=== PATIENT | female | born 2005 | race Caucasian/White ===

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

== ENCOUNTER 2023-07-07 09:40 | Inpatient (IN) | payer BC ==
[2023-07-07] MEDS ORDERED: Water For Irrigation,Sterile 1,000 ML Container IRR PRN (10:48)
[2023-07-07] MEDS ORDERED: Ondansetron 4 MG/2 ML SDV IVPUSH PRN (10:48)
[2023-07-07] MEDS ORDERED: Lidocaine 1% 50 ML MDV INJECT PRN (10:48)
[2023-07-07] MEDS ORDERED: Sodium Chloride 0.9% 20 ML SDV IV PRN (10:48)
[2023-07-07] MEDS ORDERED: Carboprost Tromethamine 250 MCG/1 mL Vial IM PRN (10:48)
[2023-07-07] MEDS ORDERED: Tranexamic Acid IN NACL,ISO-OS 1,000 MG in Premix Bag 1 BAG IV PRN ×2 (10:48→22:41)
[2023-07-07] MEDS ORDERED: Methylergonovine 0.2 MG/1 ML Amp IM PRN ×2 (10:48→22:41)
[2023-07-07] MEDS ORDERED: Sodium Chloride 0.9% 2.5 ML Syringe FLUSH PRN (10:48)
[2023-07-07] MEDS ORDERED: Misoprostol 200 MCG Tab PO PRN (10:48)
[2023-07-07] MEDS ORDERED: Sodium Chloride 0.9% 10 ML Syringe FLUSH PRN (10:48)
[2023-07-07] MEDS ORDERED: Oxytocin/0.9 % Sodium Chloride 30 UNIT/500 ML BAG IV SCH (11:00)
[2023-07-07 11:51] LABS: HEMATOCRIT 37.9 % (37.0-47.0); HEMOGLOBIN 13.5 g/dL (12.0-16.0); MEAN CORPUSCULAR HEMOGLOBIN 31.3 pg (28.0-32.0); MEAN CORPUSCULAR HGB CONC 35.6 g/dL (32.0-36.0); MEAN CORPUSCULAR VOLUME 87.9 fL (83.0-99.0); MEAN PLATELET VOLUME 12.4 fL (9.4-12.3); PLATELET COUNT,PLT 200 K/uL (150-400); RED BLOOD CELL COUNT 4.31 M/uL (4.10-5.30); WHITE BLOOD CELL COUNT,WBC 13.14 K/uL (3.9-11.3)
[2023-07-07] MEDS: Lactated Ringers 1,000 ML IV SCH (12:45)
[2023-07-07] MEDS ORDERED: Bupivacaine 0.5% 10 ML SDV ONE (14:29)
[2023-07-07] MEDS ORDERED: Phenylephrine HCl 0.5 MG/5 ML AMP ONE (14:29)
[2023-07-07] MEDS: Ropivacaine HCl/PF 200 ML ONE (14:44)
[2023-07-07] MEDS ORDERED: ePHEDrine 50 MG/ML SDV IVPUSH PRN ×2 (14:51)
[2023-07-07] MEDS ORDERED: Phenylephrine HCl 0.5 MG/5 ML AMP IVPUSH PRN (14:51)
[2023-07-07] MEDS ORDERED: Ropivacaine HCl/PF 400 MG in Premix Bag 1 BAG EPIDUR SCH (15:00)
[2023-07-07] MEDS ORDERED: Terbutaline 1 MG/ML SDV SUBCUT PRN (15:02)
[2023-07-07] MEDS: Oxytocin/0.9 % Sodium Chloride 30 UNIT/500 ML BAG IV SCH (15:34)
[2023-07-07] MEDS ORDERED: Lanolin 100% Cream 7 GM Tube TOP PRN (22:41)
[2023-07-07 22:51] LABS: PH,UMBILICAL ARTERIAL 7.16 (7.18-7.38); PH,UMBILICAL VENOUS 7.315 (7.25-7.45)
[2023-07-08] MEDS: Docusate Sodium 100 MG Cap PO PRN (00:21)
[2023-07-08] MEDS: Acetaminophen 500 MG Tab PO PRN (00:21)
[2023-07-08] MEDS: Witch Hazel Medicated Pads 40/Jar TOP PRN (00:23)
[2023-07-08] MEDS: Benzocaine/Menthol 20%-0.5% Spray 78 GM Cannister TOP PRN (00:24)
[2023-07-08 06:16] LABS: HEMATOCRIT 33.4 % (37.0-47.0); HEMOGLOBIN 11.6 g/dL (12.0-16.0)
[2023-07-08] MEDS: Ibuprofen 800 MG Tab PO PRN (09:05)
[2023-07-09 20:44] VITALS: BP 134/75; PULSE 85
== END 2023-07-09 22:40 | disposition home or self-care (01) | DRG 560 ==
LOC: MW.OBCHECK 09:40 → MW.OB 09:48 → MW.OBCHECK 10:48 → MW.OB 10:48 → OBSVTOIN 22:09 → MW.OB 07-08
PROVIDERS: ADMIT Obstetrics & Gynecology; ATTEND Obstetrics & Gynecology
PROC: 10E0XZZ Delivery of Products of Conception, External Approach (ICD-10-PCS; principal; 2023-07-07)
PROC: 10907ZC Drainage of Amniotic Fluid, Therapeutic from Products of Conception, Via Natural or Artificial Opening (ICD-10-PCS; 2023-07-07)
PROC: 3E0R3BZ Introduction of Anesthetic Agent into Spinal Canal, Percutaneous Approach (ICD-10-PCS; 2023-07-07)
PROC: 00HU33Z Insertion of Infusion Device into Spinal Canal, Percutaneous Approach (ICD-10-PCS; 2023-07-07)
PROC: 0UQG7ZZ Repair Vagina, Via Natural or Artificial Opening (ICD-10-PCS; 2023-07-07)
DX: O48.0 Post-term pregnancy (principal); Z37.0 Single live birth; O99.344 Other mental disorders complicating childbirth; F41.9 Anxiety disorder, unspecified; F31.9 Bipolar disorder, unspecified; O71.4 Obstetric high vaginal laceration alone; Z3A.40 40 weeks gestation of pregnancy
CPT/HCPCS: 36415; 51702; 59025; 59409; 59414; 82803; 85014; 85018; 85027; 86592; 86850; 86900; 86901; A9270-GY; J0665; J2371; J2590; J2795; J7120

== ENCOUNTER 2023-07-20 12:11 | Emergency (ER) | payer BC ==
[2023-07-20 12:38] LABS: APPEARANCE,URINE SLT CLOUDY; BILIRUBIN,URINE NEGATIVE (NEGATIVE); COLOR,URINE YELLOW; GLUCOSE,URINE NEGATIVE (NEGATIVE); KETONES,URINE TRACE mg/dL (NEGATIVE); LEUKOCYTE ESTERASE,URINE TRACE (NEGATIVE); NITRITE,URINE NEGATIVE (NEGATIVE); OCCULT BLOOD,URINE LARGE (NEGATIVE); PROTEIN,URINE 100 mg/dL (NEGATIVE); UROBILINOGEN,URINE 0.2 EU/dL (<2.0)
[2023-07-20] MEDS: Ondansetron 4 MG/2 ML SDV IVPUSH ONE (12:40)
[2023-07-20] MEDS: Ketorolac 30 MG/ML SDV IVPUSH ONE (12:40)
[2023-07-20] MEDS: Acetaminophen 500 MG Tab PO ONE (12:41)
[2023-07-20] MEDS: Sodium Chloride 0.9% 1,000 ML IV ONE ×2 (12:41→15:17)
[2023-07-20 12:49] LABS: BACTERIA,URINE 1+ (NEGATIVE); EPITHELIAL CELLS,URINE MODERATE (NONE-FEW); RBC,URINE 20-30 (0-2/HPF)
[2023-07-20 13:01] LABS: BASOPHILS ABSOLUTE AUTO 0.04 K/uL (0.00-0.20); BASOPHILS PERCENT AUTO 0.2 % (0.0-1.0); HEMATOCRIT 42.6 % (37.0-47.0); HEMOGLOBIN 14.8 g/dL (12.0-16.0); IMMATURE GRAN ABSOLUTE AUTO 0.08 K/uL (0.00-0.05); IMMATURE GRAN PERCENT AUTO 0.4 % (0.0-0.4); LYMPHOCYTES ABSOLUTE AUTO 0.73 K/uL (1.00-4.80); MEAN CORPUSCULAR HEMOGLOBIN 30.6 pg (28.0-32.0); MEAN CORPUSCULAR HGB CONC 34.7 g/dL (32.0-36.0); MEAN CORPUSCULAR VOLUME 88.2 fL (83.0-99.0); MONOCYTES ABSOLUTE AUTO 0.58 K/uL (0.00-0.80); MONOCYTES PERCENT AUTO 3.2 % (0.0-8.0); NEUTROPHILS ABSOLUTE AUTO 16.73 K/uL (1.80-7.70); NEUTROPHILS PERCENT AUTO 92.2 % (41.0-71.0); PLATELET COUNT,PLT 273 K/uL (150-400); RED BLOOD CELL COUNT 4.83 M/uL (4.10-5.30); WHITE BLOOD CELL COUNT,WBC 18.16 K/uL (3.9-11.3)
[2023-07-20 13:03] LABS: CORONAVIRUS COVID-19 NAA NEGATIVE (NEGATIVE); INFLUENZA A NAA NEGATIVE (NEGATIVE); INFLUENZA B NAA NEGATIVE (NEGATIVE)
[2023-07-20 13:05] LABS: A/G RATIO 0.7 (0.9-1.6); ALBUMIN 3.2 g/dL (3.4-5.0); CARBON DIOXIDE,CO2 22.5 mmol/L (21.0-32.0); CREATININE 0.9 mg/dL (0.6-1.0); EST CRCL DRUG DOSING (CG) 82.48 mL/min; MAGNESIUM 1.7 mg/dL (1.8-2.4); PROTEIN TOTAL,TP 7.9 g/dL (6.4-8.2)
[2023-07-20] MEDS: Clindamycin Phosphate in D5W 600 MG in Premix Bag 1 BAG IV ONE (13:15)
[2023-07-20 13:29] LABS: LACTIC ACID 1.2 mmol/L (0.4-2.0)
[2023-07-20] MEDS: Gentamicin 360 MG in Sodium Chloride 0.9% 100 ML IV ONE (14:07)
[2023-07-20 15:17] VITALS: BP 107/57; PULSE 91
== END 2023-07-20 15:40 | disposition home or self-care (01) ==
LOC: MW.ED 12:11
DX: O86.4 Pyrexia of unknown origin following delivery (principal); F17.210 Nicotine dependence, cigarettes, uncomplicated; Z91.018 Allergy to other foods; Z91.010 Allergy to peanuts; Z79.899 Other long term (current) drug therapy
CPT/HCPCS: 0240U; 36415; 71045; 76857; 80053; 81001; 83605; 83735; 85025; 87040; 96361; 96365; 96367; 96375; 99284; A9270; J0736; J1580; J1885; J2405; J3490; J7030

== ENCOUNTER 2024-03-23 19:10 | Emergency (ER) | payer BC ==
[2024-03-23] MEDS: Ondansetron 4 MG Tab.DIS PO ONE (20:35)
[2024-03-23 20:41] LABS: CORONAVIRUS COVID-19 NAA POSITIVE (NEGATIVE); INFLUENZA A NAA NEGATIVE (NEGATIVE); INFLUENZA B NAA NEGATIVE (NEGATIVE)
[2024-03-23 21:55] VITALS: BP 116/71; PULSE 99
== END 2024-03-23 22:01 | disposition home or self-care (01) ==
LOC: MW.ED 19:10
DX: U07.1 COVID-19 (principal); Z86.16 Personal history of COVID-19; Z91.018 Allergy to other foods; Z75.8 Other problems related to medical facilities and other health care
CPT/HCPCS: 0240U; 87651; 99283; A9270

== ENCOUNTER 2025-01-15 17:08 | Emergency (ER) | payer BC ==
[2025-01-15 17:26] VITALS: BP 110/72; PULSE 104
== END 2025-01-15 18:42 | disposition home or self-care (01) ==
LOC: MW.ED 17:08
DX: J02.9 Acute pharyngitis, unspecified (principal); B34.9 Viral infection, unspecified; Z91.018 Allergy to other foods; Z91.010 Allergy to peanuts
CPT/HCPCS: 71045; 87426; 87651; 96374; 99285; A9270; J1100; 99283